=== PATIENT | female | born 2000 | race Caucasian/White ===

== ENCOUNTER → 2019-11-12 | Outpatient (CLI) | payer OTHER ==
[~2019-11-12] MED LIST: prenatal vit
[2019-11-12 18:21] LABS: BASO % 0.4 % (0.0-1.0); EOS # 0.1 10^3/uL (0.0-0.5); EOS % 1.4 % (0.0-3.0); HEMATOCRIT 42.8 % (36.0-47.0); HEMOGLOBIN 13.7 g/dl (12.0-15.5); LYMPH # 2.5 10^3/uL (1.5-5.0); MEAN CORPUSCULAR HEMOGLOBIN 28.6 pg (27.0-33.0); MEAN CORPUSCULAR VOLUME 89.4 fl (80.0-96.0); MONO # 0.5 10^3/uL (0.0-0.8); MONO % 5.3 % (0.0-5.0); NEUTROPHILS # 6.4 10^3/uL (1.5-8.5); NEUTROPHILS % 66.2 % (36.0-66.0); PLATELET COUNT, AUTOMATED 289 10^3/uL (150-450); RED BLOOD COUNT 4.79 10^6/uL (4.00-5.40); WHITE BLOOD COUNT 9.7 10^3/uL (4.0-10.0)
[2019-11-12 19:47] LABS: CHLAMYDIA DNA AMPLIFICATION NEGATIVE (NEGATIVE); GC DNA AMPLIFICATION NEGATIVE (NEGATIVE)
[2019-11-13 10:47] LABS: HEPATITIS C VIRUS ABY INDEX < 0.0 INDEX (<0.8); HIV 1&2 SCREEN CENTAUR NEGATIVE (NEGATIVE); RUBELLA IgG QUALITATIVE IMMUNE (IMMUNE)
== END ==
LOC: M PLALAB 14:41
PROVIDERS: ATTEND Advanced Practice Midwife
DX: Z34.01 Encounter for supervision of normal first pregnancy, first trimester (principal); Z36.89 Encounter for other specified antenatal screening

== ENCOUNTER 2019-11-17 12:00 | Emergency (ER) | payer OTHER ==
[~2019-11-17] VITALS: Ht 167.6 cm; Wt 89.4 kg
[2019-11-17] MEDS ORDERED: prenatal vit (12:07)
[2019-11-17 12:42] LABS: BASO # 0.1 10^3/uL (0.0-0.2); BASO % 0.5 % (0.0-1.0); EOS # 0.1 10^3/uL (0.0-0.5); EOS % 1.3 % (0.0-3.0); HEMATOCRIT 43.1 % (36.0-47.0); HEMOGLOBIN 14.3 g/dl (12.0-15.5); LYMPH # 2.3 10^3/uL (1.5-5.0); LYMPH % 22.2 % (24.0-44.0); MEAN CORPUSCULAR HEMOGLOBIN 29.2 pg (27.0-33.0); MEAN CORPUSCULAR HGB CONC 33.2 g/dl (32.0-36.5); MONO # 0.5 10^3/uL (0.0-0.8); MONO % 5.1 % (0.0-5.0); NEUTROPHILS # 7.4 10^3/uL (1.5-8.5); NEUTROPHILS % 70.4 % (36.0-66.0); PLATELET COUNT, AUTOMATED 279 10^3/uL (150-450); WHITE BLOOD COUNT 10.4 10^3/uL (4.0-10.0)
[2019-11-17 13:29] LABS: BLOOD UREA NITROGEN 7 MG/DL (7-18); CALCIUM LEVEL 9.8 MG/DL (8.5-10.1); CARBON DIOXIDE LEVEL 26 MEQ/L (21-32); CHLORIDE LEVEL 104 MEQ/L (98-107); CREATININE FOR GFR 0.54 MG/DL (0.55-1.30); GLUCOSE, FASTING 90 MG/DL (70-100); HCG, SERUM QUANTITATIVE 61372 MIU/ML; POTASSIUM SERUM 4.3 MEQ/L (3.5-5.1); SODIUM LEVEL 137 MEQ/L (136-145)
[2019-11-17] MEDS ORDERED: ONDANSETRON 4 MG ORAL DISINTEGRATING TAB (Q0162 PER 1MG) PO ONE (14:15)
[2019-11-17 15:35] VITALS: BP 139/83
--- NOTE | 2019-11-17 15:35 | REP ---
First trimester ultrasound for vaginal bleeding, emergency room request: The bladder is adequately distended. There is an intrauterine gestational sac with a pole. The heart rate is 182 beats per minute. The pole crown-rump length is a 16 mm. This corresponds to a gestational age of 8 weeks 0 days/BOWEN 06/28/2020. Gestational age by LMP is 9 weeks 6 days/BOWEN 06/21/2020. There is a small subchorionic hemorrhage measuring 1.5 x 0.9 x 1.9 cm. The maternal adnexa and cul-de-sac demonstrate a 3.0 cm right ovarian cyst, likely a corpus luteum. Electronically Signed by Chava Ortiz MD 11/17/2019 03:28 P
== END 2019-11-17 15:42 | disposition home or self-care (01) ==
LOC: M ED 12:00
DX: O20.8 Other hemorrhage in early pregnancy (principal); O23.41 Unspecified infection of urinary tract in pregnancy, first trimester; Z3A.09 9 weeks gestation of pregnancy; Z79.899 Other long term (current) drug therapy; Z88.0 Allergy status to penicillin
CPT/HCPCS: 76801; 80048; 81001; 84702; 85025; 86850; 86900; 86901; 87086; 99283; Q0162

== ENCOUNTER → 2019-11-24 | Outpatient (CLI) | payer OTHER | LOC: M PLALAB 14:13 | PROVIDERS: ATTEND Advanced Practice Midwife | DX: Z34.81 Encounter for supervision of other normal pregnancy, first trimester (principal); Z36.89 Encounter for other specified antenatal screening ==

== ENCOUNTER → 2019-12-03 | Outpatient (CLI) | payer OTHER | LOC: M PLALAB 14:38 | PROVIDERS: ATTEND Advanced Practice Midwife | DX: Z34.81 Encounter for supervision of other normal pregnancy, first trimester (principal); Z36.89 Encounter for other specified antenatal screening ==

== ENCOUNTER → 2019-12-10 | Outpatient (REF) | payer OTHER | LOC: M SMT 16:06 | PROVIDERS: ATTEND Advanced Practice Midwife | DX: Z33.1 Pregnant state, incidental (principal) ==

== ENCOUNTER → 2020-02-18 | Outpatient (REF) | payer OTHER | LOC: M PLALAB 10:43 | PROVIDERS: ATTEND Advanced Practice Midwife | DX: O28.5 Abnormal chromosomal and genetic finding on antenatal screening of mother (principal); Z3A.00 Weeks of gestation of pregnancy not specified; Z53.8 Procedure and treatment not carried out for other reasons ==

== ENCOUNTER → 2020-03-18 | Outpatient (REF) | payer OTHER ==
[2020-03-18 17:55] LABS: HEMATOCRIT 34.8 % (36.0-47.0); HEMOGLOBIN 11.3 g/dl (12.0-15.5); MEAN CORPUSCULAR HEMOGLOBIN 28.5 pg (27.0-33.0); MEAN CORPUSCULAR HGB CONC 32.5 g/dl (32.0-36.5); MEAN CORPUSCULAR VOLUME 87.7 fl (80.0-96.0); RED BLOOD COUNT 3.97 10^6/uL (4.00-5.40); WHITE BLOOD COUNT 11.4 10^3/uL (4.0-10.0)
[2020-03-18 17:56] LABS: PLATELET COUNT, AUTOMATED 258 10^3/uL (150-450)
== END ==
LOC: M PLALAB 14:38
PROVIDERS: ATTEND Advanced Practice Midwife
DX: O28.5 Abnormal chromosomal and genetic finding on antenatal screening of mother (principal)

== ENCOUNTER → 2020-05-24 | Outpatient (REF) | payer OTHER ==
[~2020-05-24] MED LIST changes: +DOCU100C16 PO
== END ==
LOC: M SFHCWAGY 16:10
PROVIDERS: ATTEND Specialist
DX: Z00.00 Encounter for general adult medical examination without abnormal findings (principal)

== ENCOUNTER → 2020-06-07 | Outpatient (REF) | payer OTHER ==
[2020-07-26 12:41] LABS: HEMATOCRIT 35.2 % (36.0-47.0); HEMOGLOBIN 10.9 g/dl (12.0-15.5); MEAN CORPUSCULAR HEMOGLOBIN 26.2 pg (27.0-33.0); MEAN CORPUSCULAR VOLUME 84.6 fl (80.0-96.0); PLATELET COUNT, AUTOMATED 300 10^3/uL (150-450); RED BLOOD COUNT 4.16 10^6/uL (4.00-5.40); WHITE BLOOD COUNT 10.2 10^3/uL (4.0-10.0)
[2020-08-03 12:32] LABS: ALT/SGPT 18 U/L (12-78); BILIRUBIN,TOTAL 0.3 MG/DL (0.2-1.0); CREATININE FOR GFR 0.44 MG/DL (0.55-1.30); LDH LACTATE DEHYDROGENASE 175 U/L (84-246); URIC ACID 2.9 MG/DL (2.6-6.0)
[2020-08-03 12:33] LABS: CREATININE,RANDOM URINE 67.3 MG/DL; TOTAL PROTEIN,RANDOM URINE 15.1 MG/DL (0.0-12.0)
== END ==
LOC: M SFHCWAGY 13:07
PROVIDERS: ATTEND Advanced Practice Midwife
DX: O13.9 Gestational [pregnancy-induced] hypertension without significant proteinuria, unspecified trimester (principal); Z3A.00 Weeks of gestation of pregnancy not specified
CPT/HCPCS: 36415; 82247; 82565; 82570; 83615; 84156; 84450; 84460; 84550; 85027; G0463

== ENCOUNTER 2020-06-09 22:58 | Inpatient (IN) | payer OTHER ==
[~2020-06-09] VITALS: Ht 167.6 cm; Wt 109.5 kg
[~2020-06-09 22:58] MED LIST changes: -DOCU100C16 PO
[2020-06-09 23:38] VITALS: BP 140/70
[2020-06-10] VITALS (14 sets, daily range): BP systolic 116–166; BP diastolic 62–102
[2020-06-10 00:25] LABS: HEMATOCRIT 32.2 % (36.0-47.0); HEMOGLOBIN 10.2 g/dl (12.0-15.5); MEAN CORPUSCULAR HEMOGLOBIN 25.6 pg (27.0-33.0); MEAN CORPUSCULAR HGB CONC 31.7 g/dl (32.0-36.5); MEAN CORPUSCULAR VOLUME 80.7 fl (80.0-96.0); PLATELET COUNT, AUTOMATED 303 10^3/uL (150-450); RED BLOOD COUNT 3.99 10^6/uL (4.00-5.40); WHITE BLOOD COUNT 10.1 10^3/uL (4.0-10.0)
[2020-06-10] MEDS ORDERED: LACTATED RINGER'S 1000 ML IV STA (00:53)
[2020-06-10] MEDS: miSOPROStol 50 MCG 1/2 TAB (S0191) PO SCH ×3 (01:09→12:06)
--- NOTE | 2020-06-10 01:14 | HPEPDOC ---
Obstetrical History & Physical General Date of Admission Jun 09, 2020 at 22:58 Primary Care Physician: HAIM FOUNTAIN CNM History of Present Illness Patient is a 19-year-old female who is a with an BOWEN of 9-8-20 based off of her first trimester ultrasound. She initiated care in her first trimester of . No records are available for review. Her has been complicated by GHTN and obesity. She also has had excessive weight gain of 60 lbs during her . She denies any preeclamptic symptoms. She denies any leaking of fluid, vaginal bleeding, or contractions. She reports active movement. Chief Complaint: Gestational Hypertension Information Provided By: Patient Age: 19 : 1 Term: 0 Pre-term: 0 Abortions: 0 Livin Care Care: Good Care Dating Final EDC: Jun 28, 2020 Final EDC by: 1st trimester (US) EGA at Admission: 37.2 Antepartum Course Height (inches): 66 Pre- weight (lbs.): 180 Admission Weight (lbs.): 240 Change in Weight (lbs.): 60 Past Medical History Past Obstetrical History : Past Obstetrical History: [employer] History: No pertinent history Past Medical History Medical History History of IMANITN as a child at the age of 9 was on lisinopril. Surgical History: Denies/None Family History Significant Family History: Diabetes, Hypertension, Other (Crohns) Social History Marital Status: Family situation: Spouse/partner home Psychosocial History: No pertinent psych hx * Smoker: non-smoker Alcohol: Denies Drugs: denies Abuse Violence Screening Have you been hit/kicked/slapp: No Have you been sexually assault: No Allergies Coded Allergies: Penicillins (Verified Allergy, Severe, throat closes, 11/17/19) Medications No Active Prescriptions or Reported Meds Physical Examination Physical Examination GENERAL: Alert and oriented times three. BREAST: . ABDOMEN: Gravid and non-tender to touch. FETUS: Is vertex (VTX) by sterile vaginal examination (SVE), fetus is vertex (VTX) by Declan. HEART RATE: Regular rate and rhythm. LUNGS: Clear to auscultation (CTA). EXTREMITIES: Generalized edema. No clonus. Deep tendon reflexes (DTRs) + 2. Vital Signs/I&O Vital Signs Date Time Temp Pulse Resp B/P (MAP) Pulse Ox O2 Delivery O2 Flow Rate FiO2 06/09/20 23:38 98.0 96 17 140/70 (93) Laboratory Data 24H LABS Laboratory Tests 2 06/09/20 23:23: Serology Scanned Report Hepatitis B Testing 06/09/20 23:55: Nucleated Red Blood Cells % (auto) 0.0 CBC/BMP Laboratory Tests 06/09/20 23:55 Urine Culture: No Growth Pertinent Laboratoy Data Blood Type: A+ RBC Antibody Screen: Negative HIV: Negative Hepatitis B: Negative Hepatitis C: Negative Rapid Plasma Reagin: Nonreactive Rubella: Immune Chlamydia/Gonorrhea: Negative Group B Streptococcus: Positive Glucose Tolerance Test: 96 Vaginal Examination Dilation: 1cm Effacement: other (75%) Station: -2 Cervical Consistency: Soft Cervical Position: Anterior Presentation: Cephalic presentation Position: Vertex (occiput) Assessment Heart Rate (FHR): 135 Variability: Moderate Accelerations: Positive Decelerations: None Tocometer Contractions: Yes Frequency: irregular Multi-drug resistant Organism: No history of MDRO Assessment/Plan Assessment IUP at 37.2 weeks gestation GBS positive Category I FHR tracing GHTN Plan Admit to Labor and delivery. Plan of care collaborated with Dr. Valentine. Counseled on induction of labor. Reviewed process of induction including use of Cytotec, bowen bulb and IV Pitocin. \ Cytotec ordered and to be started. Diet: regular until IV Pitocin is started then clear liquid diet. Group B Streptococcus (GBS) positive. GBS prophylaxis antibiotics to be started per order when labor starts. Labs and intravenous (IV) per unit protocol. Anesthesia consult per patient's request. Lactated Ringers (LR): Bolus 500 mL prior to epidural, then at 125 mL/hr. Anticipate cervical ripening. C-S as appropriate. HAIM FOUNTAIN CNM Jun 10, 2020 01:14
[2020-06-10 02:35] LABS: ALT/SGPT 18 U/L (12-78); CREATININE FOR GFR 0.59 MG/DL (0.55-1.30); LDH LACTATE DEHYDROGENASE 188 U/L (84-246); URIC ACID 2.7 MG/DL (2.6-6.0)
[2020-06-10 07:40] LABS: BILIRUBIN,TOTAL < 0.1 MG/DL (0.2-1.0)
[2020-06-10] MEDS ORDERED: * PENDING VANCOMYCIN ENTRY XX SCH (09:00)
--- NOTE | 2020-06-10 09:03 | IPNPDOC ---
Text Note Date of Service The patient was seen on 06/10/20. NOTE Progress Has eaten and showered. Reports UC irregular but stronger, approximately Q 10 minutes. FH 145, moderate variability SVE 1-2/80/-2, moderate texture. Continue misoprostol at this time. VS,Fishbone, I+O VS, Fishbone, I+O Laboratory Tests 06/09/20 23:55 Vital Signs Date Time Temp Pulse Resp B/P (MAP) Pulse Ox O2 Delivery O2 Flow Rate FiO2 06/10/20 05:03 81 16 116/64 (81) 06/10/20 04:02 98.2 Malena Tyson CNM Jun 10, 2020 09:03
--- NOTE | 2020-06-10 20:31 | IPNPDOC ---
Text Note Date of Service The patient was seen on 06/10/20. NOTE Progress Has received misoprostol x 3. Irregular UC FH 135, Cat I SVE 2+/80/-2 Cooks catheter placed, inflated with NS 60cc/40cc Will start pitocin. Pt plans epidural VS,Fishbone, I+O VS, Fishbone, I+O Laboratory Tests 06/09/20 23:55 Vital Signs Date Time Temp Pulse Resp B/P (MAP) Pulse Ox O2 Delivery O2 Flow Rate FiO2 06/10/20 13:02 74 130/62 (84) 06/10/20 09:02 20 06/10/20 07:50 96.7 Malena Tyson CNM Jun 10, 2020 20:30
[2020-06-10] MEDS ORDERED: OXYTOCIN 30 UNITS IN 0.9% NaCl 500ML IV BAG (J2590) As Ordered ONE (20:38)
[2020-06-10] MEDS ORDERED: OXYTOCIN DRIP 30 UNITS in IV 1 EA IV SCH (20:45)
[2020-06-10] MEDS: VANCOMYCIN HCL 1,000 MG, VIAL MATE ADAPTER 1 EACH in D5W 250 ML IV SCH (21:07)
[2020-06-10] MEDS: LR 1,000 ML IV SCH (21:07)
[2020-06-10] MEDS ORDERED: BUTORPHANOL 2 MG/ML INJ (J0595) IV ONE (21:45)
[2020-06-10] MEDS ORDERED: PROMETHAZINE INJ 25 MG/ML VIAL (J2550) IV ONE (21:45)
[2020-06-11] VITALS (19 sets, daily range): BP systolic 115–147; BP diastolic 57–108
--- NOTE | 2020-06-11 02:47 | IPNPDOC ---
Text Note Date of Service The patient was seen on 06/11/20. NOTE Progress Vaginal bulb deflated. Uterine bulb in vagina, removed intact SVE 5/80/-1, moderate bloody show Pitocin at 4mu UC 2-5 minutes x 45-60 seconds FH 145, Cat I Continue IOL. Planning epidural VS,Fishbone, I+O VS, Fishbone, I+O Vital Signs Date Time Temp Pulse Resp B/P (MAP) Pulse Ox O2 Delivery O2 Flow Rate FiO2 06/10/20 22:47 18 06/10/20 13:02 74 130/62 (84) 06/10/20 07:50 96.7 Malena Tyson CNM Jun 11, 2020 02:47
[2020-06-11] MEDS ORDERED: FENTANYL 2MCG/ML ROPIVACAINE 0.2% IN 0.9% NACL 100ML IVBAG As Ordered ONE (04:03)
[2020-06-11] MEDS ORDERED: diphenhydrAMINE 50MG/ML VIAL (J1200) IV PRN (04:50)
[2020-06-11] MEDS ORDERED: FENTANYL/ROPIVACAINE/NACL BAG 100 ML EPIDURAL SCH (04:50)
[2020-06-11] MEDS ORDERED: LACTATED RINGER'S 1000 ML IV PRN (04:50)
[2020-06-11] MEDS ORDERED: NALOXONE INJ 0.4MG/1ML VIAL (J2310 PER 1MG) IV PRN (04:50)
[2020-06-11] MEDS ORDERED: REFRIGERATOR IV KEYS XX PRN (04:50)
[2020-06-11] MEDS ORDERED: ePHEDrine SULFATE 25 MG/5 ML(5MG/ML) SYRINGE IV PRN (04:50)
[2020-06-11] MEDS ORDERED: EPIDURAL/PCA KEYS XX PRN (04:50)
[2020-06-11] MEDS ORDERED: ONDANSETRON 4MG/2ML VIAL IV PRN (04:50)
[2020-06-11] MEDS ORDERED: EPIDURAL COMMENT XX SCH (04:50)
[2020-06-11] MEDS ORDERED: ONDANSETRON 4MG/2ML VIAL As Ordered ONE (05:43)
[2020-06-11] MEDS: LR 1,000 ML IV SCH (08:51)
[2020-06-11] MEDS: VANCOMYCIN HCL 1,000 MG, VIAL MATE ADAPTER 1 EACH in D5W 250 ML IV SCH (08:51)
--- NOTE | 2020-06-11 11:36 | DNPDOC ---
[facility] Delivery Note Delivery Note DATE OF DELIVERY: 06/11/2020 TIME OF : 1045 GENDER: Male. APGARS:, 9 and 9. WEIGHT:, 3240 grams or 7 pounds 2 ounces. LACERATIONS: None ANESTHESIA: Epidural. ESTIMATED BLOOD LOSS: 300ml COUNTS: 5 laparotomy sponges accounted for prior to after delivery. DELIVERY NOTE: 06/11/2020, had a spontaneous vaginal delivery of viable male , Apgars 9 and 9, and weight was 3240 g or 7 lbs. 2 oz. Head was delivered occiput anterior (OA) , followed by delivery of the shoulders and corpus. was handed to mom with a good cry. Cord was clamped times two and was cut by the father of baby under my direction. Placenta was then drained and delivered grossly intact. A premixed bag of 500 mL of normal saline with 30 units of Pitocin was then bolused along with uterine massage until the uterus w as firm. On inspection, cervix, vagina, perineum was grossly intact and hemostatic. Mom and baby in recovery on stable condition. The couples decided to remain in son VINOD Potter MD. Jun 11, 2020 11:36
[2020-06-11] MEDS ORDERED: METHYLERGONOVINE MALEATE 0.2 MG TAB PO PRN (11:45)
[2020-06-11] MEDS ORDERED: ACETAMINOPHEN TAB 650MG DOSE (2X325MG) PO PRN (11:45)
[2020-06-11] MEDS ORDERED: DIBUCAINE 1% OINTMENT 30GM TOP PRN (11:45)
[2020-06-11] MEDS ORDERED: RHOGAM 300 MCG (1500 IU) INJ (J2790) IM SCH (11:45)
[2020-06-11] MEDS ORDERED: ANUSOL HC CREAM 30GM TOP PRN (11:45)
[2020-06-11] MEDS ORDERED: MOM 30ML SUSPENSION UDC PO PRN (11:45)
[2020-06-11] MEDS ORDERED: MEASLES,MUMPS,RUBELLA VACCINE INJ (MMR-II) (90707) SC SCH (11:45)
[2020-06-11] MEDS ORDERED: ACETAMINOPHEN 500 MG TAB PO PRN (11:45)
[2020-06-11] MEDS ORDERED: OXYTOCIN DRIP 30 UNITS in IV 1 EA IV SCH (11:45)
[2020-06-11] MEDS ORDERED: IBUPROFEN 600MG TAB PO PRN (11:45)
[2020-06-11] MEDS ORDERED: DOCUSATE SODIUM 100 MG CAP PO PRN (11:45)
[2020-06-11] MEDS: IBUPROFEN 800 MG TAB PO PRN (17:27)
[2020-06-12] MEDS: IBUPROFEN 800 MG TAB PO PRN ×2 (02:16→17:45)
[2020-06-12 06:00] VITALS: BP 128/70
[2020-06-12] MEDS: PRENATAL VITAMINS CHEWABLE TABLET PO SCH (07:56)
--- NOTE | 2020-06-12 11:03 | IPNPDOC ---
Progress Note Date of Service: Jun 12, 2020 Day#: 1 Progress Note SUBJECT: Doing well without complaints. Ambulating, voiding and pain is well-c ontrolled. Reports minimal lochia. OBJECTIVE: VITAL SIGNS: Within normal limits, afebrile. Alert and oriented times three. Abdomen: Fundus firm at U-2. Soft, NTTP. Ext: neg calf tenderness. ASSESSMENT: day #1 status post normal spontaneous vaginal delivery. Recovering in stable condition. PLAN: 1. Continue routine care 2. Discharge plans for tomorrow VS, I&O, 24H, Fishbone Vital Signs/I&O Vital Signs Date Time Temp Pulse Resp B/P (MAP) Pulse Ox O2 Delivery O2 Flow Rate FiO2 06/12/20 06:00 96.7 80 18 128/70 (89) I&O- Last 24 Hours up to 6 AM 06/12/20 05:59 Intake Total 1385 ml Output Total 600 ml Balance 785 ml VINOD CHENG MD. Jun 12, 2020 11:03
[2020-06-12 17:42] VITALS: BP 136/66
[2020-06-13 06:09] VITALS: BP 139/77
[2020-06-13] MEDS ORDERED: DOCU100C16 PO (07:55)
[2020-06-13] MEDS: PRENATAL VITAMINS CHEWABLE TABLET PO SCH (08:38)
[2020-06-13] MEDS: IBUPROFEN 800 MG TAB PO PRN (08:38)
== END 2020-06-13 09:58 | disposition home or self-care (01) | DRG 807 ==
LOC: M LDI 22:58 → M OBS 06-11 13:34
PROVIDERS: ADMIT Advanced Practice Midwife; ATTEND Obstetrics & Gynecology
PROC: 3E0P7GC Introduction of Other Therapeutic Substance into Female Reproductive, Via Natural or Artificial Opening (ICD-10-PCS; 2020-06-09)
PROC: 10E0XZZ Delivery of Products of Conception, External Approach (ICD-10-PCS; principal; 2020-06-11)
DX: O13.4 Gestational [pregnancy-induced] hypertension without significant proteinuria, complicating childbirth (principal); Z37.0 Single live birth; O99.214 Obesity complicating childbirth; E66.9 Obesity, unspecified; O99.824 Streptococcus B carrier state complicating childbirth; Z3A.37 37 weeks gestation of pregnancy

== ENCOUNTER → 2021-02-07 | Outpatient (REF) | payer OTHER ==
[~2021-02-07] MED LIST changes: +DOCU100C16 PO
[2021-02-07 18:13] LABS: HEMATOCRIT 41.7 % (36.0-47.0); HEMOGLOBIN 13.4 g/dl (12.0-15.5); MEAN CORPUSCULAR HEMOGLOBIN 26.7 pg (27.0-33.0); MEAN CORPUSCULAR HGB CONC 32.1 g/dl (32.0-36.5); MEAN CORPUSCULAR VOLUME 83.2 fl (80.0-96.0); PLATELET COUNT, AUTOMATED 300 10^3/uL (150-450); RED BLOOD COUNT 5.01 10^6/uL (4.00-5.40); WHITE BLOOD COUNT 10.3 10^3/uL (4.0-10.0)
[2021-02-07 19:57] LABS: HEPATITIS C VIRUS ABY INDEX < 0.0 INDEX (<0.8)
[2021-02-10 09:07] LABS: HIV 1&2 SCREEN CENTAUR NEGATIVE (NEGATIVE)
== END ==
LOC: M PLALAB 14:57
PROVIDERS: ATTEND Specialist
DX: Z34.81 Encounter for supervision of other normal pregnancy, first trimester (principal)

== ENCOUNTER → 2021-03-08 | Outpatient (REF) | payer OTHER | LOC: M SMT 16:38 | PROVIDERS: ATTEND Specialist | DX: Z34.81 Encounter for supervision of other normal pregnancy, first trimester (principal); Z36.89 Encounter for other specified antenatal screening | CPT/HCPCS: 87086; G0463 ==

== ENCOUNTER → 2021-03-30 | Outpatient (CLI) | payer OTHER ==
--- NOTE | 2021-03-31 04:34 | REP ---
INDICATION: ANATOMY COMPARISON: None. TECHNIQUE: Transabdominal obstetrical ultrasound with color Doppler evaluation. FINDINGS: Examination demonstrates a single live intrauterine in cephalic presentation. motion is identified by technologist. Placenta is noted anterior and grade 0 without evidence for placenta previa or abruption. Amniotic fluid volume is normal. Cervix measures 3.3 cm in length and appears closed.. Selected gestational age: 19 weeks 4 days with BOWEN 08/20/2021. Gestational age by current measurements 19 weeks 1 day with BOWEN 08/23/2021. FHR equals 138 beats per minute. Estimated weight 269 grams (19thpercentile). Anatomical assessment demonstrates normal structures including cranium, choroid plexus, cavum, cerebellum/posterior fossa, facial features, lungs,diaphragm, stomach, cord insertion/three-vessel cord, kidneys/bladder, spine, and extremities. IMPRESSION: Single live intrauterine in breech presentation. Appropriate estimated weight. Limited evaluation of the heart/ventricular outflow tracts. Remainder of the anatomical assessment is complete and normal. <Electronically signed by Ken Case > 03/31/21 2002
== END ==
LOC: M WHC 12:58
PROVIDERS: ATTEND Advanced Practice Midwife
DX: Z36.89 Encounter for other specified antenatal screening (principal); Z3A.19 19 weeks gestation of pregnancy; O32.1XX0 Maternal care for breech presentation, not applicable or unspecified

== ENCOUNTER → 2021-05-01 | Outpatient (CLI) | payer OTHER ==
--- NOTE | 2021-05-01 10:35 | REP ---
INDICATION: F/U ANATOMY COMPARISON: 03/30/2021 TECHNIQUE: Transabdominal obstetrical ultrasound with color Doppler evaluation. FINDINGS: Examination demonstrates a single live intrauterine in breech presentation. motion is identified by technologist. Placenta is noted anterior and grade 1 without evidence for placenta previa or abruption. Amniotic fluid volume is normal. Cervix measures 4.0 cm in length and appears closed.. Selected gestational age: 24 weeks 1 day with BOWEN 08/20/2021. Gestational age by current measurements 23 weeks 6 days with BOWEN 08/22/2021. FHR equals 133 beats per minute. Estimated weight 642 grams (31stpercentile). Anatomical assessment demonstrates normal structures including cranium, choroid plexus, cavum, cerebellum/posterior fossa, facial features, lungs, four-chamber heart/ventricular outflow tracts, diaphragm, stomach, cord insertion/three-vessel cord, kidneys/bladder, and extremities. IMPRESSION: Single live intrauterine in breech presentation demonstrating appropriate estimated weight. In conjunction with prior examination anatomical assessment is complete and normal. <Electronically signed by Ken Case > 05/01/21 [id number]
== END ==
LOC: M WHC 09:24
PROVIDERS: ATTEND Advanced Practice Midwife
DX: Z36.89 Encounter for other specified antenatal screening (principal); Z3A.23 23 weeks gestation of pregnancy

== ENCOUNTER → 2021-05-01 | Outpatient (CLI) | payer OTHER ==
[2021-05-01 13:29] LABS: HEMATOCRIT 35.2 % (36.0-47.0); HEMOGLOBIN 11.2 g/dl (12.0-15.5); MEAN CORPUSCULAR HEMOGLOBIN 27.3 pg (27.0-33.0); MEAN CORPUSCULAR HGB CONC 31.8 g/dl (32.0-36.5); MEAN CORPUSCULAR VOLUME 85.9 fl (80.0-96.0); PLATELET COUNT, AUTOMATED 249 10^3/uL (150-450); WHITE BLOOD COUNT 9.4 10^3/uL (4.0-10.0)
== END ==
LOC: M PLALAB 09:19
PROVIDERS: ATTEND Obstetrics & Gynecology
DX: Z34.82 Encounter for supervision of other normal pregnancy, second trimester (principal)

== ENCOUNTER → 2021-07-27 | Outpatient (REF) | payer OTHER | LOC: M SFHCWAGY 16:48 | PROVIDERS: ATTEND Advanced Practice Midwife | DX: Z36.89 Encounter for other specified antenatal screening (principal); Z3A.36 36 weeks gestation of pregnancy | CPT/HCPCS: 87081; 87186; G0463 ==

== ENCOUNTER 2021-08-11 15:49 | Outpatient (CLI) | payer OTHER ==
[~2021-08-11] VITALS: Ht 167.6 cm; Wt 105.7 kg
[2021-08-11 16:10] VITALS: BP 134/77
--- NOTE | 2021-08-11 16:55 | IPNPDOC ---
Text Note Date of Service The patient was seen on 08/11/21. NOTE Outpatient 20yo BOWEN 08/20/2021. Presents @ 38w5d with complaints of left sided groin pain that comes and goes.Denies rhythmic contractions, timing ranges from 5-10 minutes apart. Denies LOF, bleeding. Fetus is very active. Reports shopping yesterday and climbing stairs through the day No distress, smiling in bed with partner at bedside VSS Abdomen is soft, gravid, longitudinal, nontender except along left groin with deep palpation. Cat I tracing, no UC on monitor SVE /-3, no show on glove Discharged home. Routine precautions. Enc pt to make appt for next week if her scheduled IOL is bumped. Malena Tyson CNM Aug 11, 2021 16:55
== END 2021-08-11 17:12 | disposition home or self-care (01) ==
LOC: M LDO 15:49
PROVIDERS: ATTEND Advanced Practice Midwife
DX: O26.893 Other specified pregnancy related conditions, third trimester (principal); Z3A.38 38 weeks gestation of pregnancy; R10.32 Left lower quadrant pain
CPT/HCPCS: 59025; G0378; G0463

== ENCOUNTER → 2023-03-01 | Outpatient (REF) | payer OTHER ==
[~2023-03-01] MED LIST changes: +FAMO10TA50 PO; +MULTTAB20 PO
== END ==
LOC: M SFHCWAGY 17:37
PROVIDERS: ATTEND Obstetrics & Gynecology
DX: Z12.4 Encounter for screening for malignant neoplasm of cervix (principal); R87.618 Other abnormal cytological findings on specimens from cervix uteri
CPT/HCPCS: 87624; G0123; G0463

== ENCOUNTER → 2023-06-12 | Outpatient (CLI) | payer OTHER, SELFPAY ==
[2023-06-12 14:19] LABS: LDH LACTATE DEHYDROGENASE 132 U/L (120-246); URIC ACID 3.7 MG/DL (3.1-7.8)
[2023-06-12 14:20] LABS: ALT/SGPT 11 U/L (7.0-40); AST/SGOT < 8 U/L (<34); BILIRUBIN,TOTAL 0.3 MG/DL (0.3-1.2); CREATININE FOR GFR 0.47 MG/DL (0.55-1.30); CREATININE,RANDOM URINE 67.4 MG/DL; GLOMERULAR FILTRATION RATE > 60.0 (>60)
[2023-06-12 14:21] LABS: TOTAL PROTEIN,RANDOM URINE < 6.0 MG/DL (0.0-14.0)
== END ==
LOC: M PLALAB 09:59
PROVIDERS: ATTEND Advanced Practice Midwife
DX: O16.2 Unspecified maternal hypertension, second trimester (principal); Z3A.00 Weeks of gestation of pregnancy not specified
CPT/HCPCS: 36415; 82247; 82565; 82570; 83615; 84156; 84450; 84460; 84550; G0463

== ENCOUNTER → 2023-08-16 | Outpatient (CLI) | payer OTHER, SELFPAY | LOC: M WHC 11:08 | PROVIDERS: ATTEND Specialist | DX: Z34.82 Encounter for supervision of other normal pregnancy, second trimester (principal); Z3A.23 23 weeks gestation of pregnancy ==

== ENCOUNTER → 2023-09-06 | Outpatient (CLI) | payer OTHER ==
[2023-09-06 17:27] LABS: HEMATOCRIT 35.5 % (36.0-47.0); HEMOGLOBIN 11.7 g/dl (12.0-15.5); MEAN CORPUSCULAR HEMOGLOBIN 28.4 pg (27.0-33.0); MEAN CORPUSCULAR VOLUME 86.2 fl (80.0-96.0); PLATELET COUNT, AUTOMATED 265 10^3/uL (150-450); RED BLOOD COUNT 4.12 10^6/uL (4.00-5.40); WHITE BLOOD COUNT 11.3 10^3/uL (4.0-10.0)
[2023-09-06 18:45] LABS: CHLAMYDIA DNA AMPLIFICATION NEGATIVE (NEGATIVE); GC DNA AMPLIFICATION NEGATIVE (NEGATIVE)
== END ==
LOC: M PLALAB 13:42
PROVIDERS: ATTEND Specialist
DX: Z34.82 Encounter for supervision of other normal pregnancy, second trimester (principal)
CPT/HCPCS: 36415; 82950; 85027; 86850; 86900; 86901; 87810; 87850; G0463

== ENCOUNTER → 2023-11-08 | Outpatient (REF) | payer OTHER | LOC: M PLALAB 14:09 | PROVIDERS: ATTEND Obstetrics & Gynecology | DX: O26.893 Other specified pregnancy related conditions, third trimester (principal); Z36.89 Encounter for other specified antenatal screening; Z3A.36 36 weeks gestation of pregnancy ==

== ENCOUNTER 2023-11-23 15:40 | Inpatient (IN) | payer OTHER ==
[2023-11-23] VITALS (9 sets, daily range): BP systolic 107–142; BP diastolic 52–86
[~2023-11-23] VITALS: Ht 167.6 cm; Wt 113.4 kg
[2023-11-23] MEDS ORDERED: TUMS750C22 PO (16:04)
[2023-11-23] MEDS ORDERED: LABE100T71 PO (16:04)
[2023-11-23] MEDS ORDERED: HOME MED LIST COMPLETE! XX SCH (16:05)
[2023-11-23] MEDS ORDERED: CARBOPROST TROMETHAMINE 250 MCG/ML AMP IM PRN (16:15)
[2023-11-23] MEDS ORDERED: OXYTOCIN DRIP 30 UNITS in IV 1 EA IV PRN (16:15)
[2023-11-23] MEDS ORDERED: TRANEXAMIC ACID INJection 1,000 MG in NS 100 ML IV PRN (16:15)
[2023-11-23] MEDS ORDERED: LIDOCAINE 1% MDV 20ML VIAL INFIL PRN (16:15)
[2023-11-23 16:51] LABS: HEMOGLOBIN 11.6 g/dl (12.0-15.5); MEAN CORPUSCULAR HEMOGLOBIN 26.7 pg (27.0-33.0); MEAN CORPUSCULAR HGB CONC 33.1 g/dl (32.0-36.5); MEAN CORPUSCULAR VOLUME 80.5 fl (80.0-96.0); PLATELET COUNT, AUTOMATED 303 10^3/uL (150-450); RED BLOOD COUNT 4.35 10^6/uL (4.00-5.40); WHITE BLOOD COUNT 9.6 10^3/uL (4.0-10.0)
[2023-11-23] MEDS: miSOPROStol 50MCG 1/2 TABLET PO SCH (18:11)
[2023-11-23] MEDS ORDERED: CALCIUM CARBONATE 500 MG CHEW U/D PO PRN (18:25)
[2023-11-23] MEDS: LABETALOL 100MG TAB PO SCH (22:05)
[2023-11-23] MEDS: OXYTOCIN DRIP 30 UNITS in IV 1 EA IV SCH (23:15)
[2023-11-23] MEDS: LR 1,000 ML IV SCH (23:15)
[2023-11-24] VITALS (46 sets, daily range): BP systolic 113–160; BP diastolic 56–89; O2SAT 98–100
[2023-11-24] MEDS ORDERED: ePHEDrine SULFATE 25 MG/5 ML(5MG/ML) SYRINGE IVP PRN (07:55)
[2023-11-24] MEDS ORDERED: ONDANSETRON 4MG 2ML VIAL IV PRN (07:55)
[2023-11-24] MEDS ORDERED: NALOXONE INJ 0.4MG/1ML VIAL IV PRN (07:55)
[2023-11-24] MEDS ORDERED: diphenhydrAMINE 50MG/ML VIAL IV PRN (07:55)
[2023-11-24] MEDS ORDERED: LR 500 ML IV PRN (07:55)
[2023-11-24] MEDS ORDERED: EPIDURAL/PCA KEYS XX PRN (07:55)
[2023-11-24] MEDS: FENTANYL/ROPIVACAINE/NACL BAG 100 ML EPIDURAL SCH (09:17)
[2023-11-24] MEDS ORDERED: ACETAMINOPHEN TAB 650MG DOSE (2X325MG) PO PRN (12:50)
[2023-11-24] MEDS ORDERED: DOCUSATE SODIUM 100MG CAPSULE PO PRN (12:50)
[2023-11-24] MEDS ORDERED: MOM 30ML SUSPENSION UDC PO PRN (12:50)
[2023-11-24] MEDS ORDERED: RHOGAM 300MCG (1500IU) INJ IM SCH (12:50)
[2023-11-24] MEDS ORDERED: IBUPROFEN 600MG TAB PO PRN (12:50)
[2023-11-24] MEDS: OXYTOCIN DRIP 30 UNITS in IV 1 EA IV SCH (13:00)
[2023-11-24] MEDS: IBUPROFEN 800 MG TAB PO PRN (16:10)
[2023-11-24] MEDS: DIBUCAINE 1% OINTMENT 30GM TOP PRN (16:10)
[2023-11-24] MEDS: ACETAMINOPHEN 500 MG TAB PO PRN (18:50)
[2023-11-25] VITALS (10 sets, daily range): BP systolic 61–182; BP diastolic 61–98; O2SAT 97–100
[2023-11-25] MEDS: LABETALOL 100MG TAB PO ONE (03:15)
[2023-11-25] MEDS: PRENATAL VITAMINS CHEWABLE TABLET PO SCH (09:10)
[2023-11-25] MEDS: LABETALOL 100MG TAB PO SCH (09:11)
[2023-11-25] MEDS: LABETALOL 200 MG TAB PO SCH (21:03)
[2023-11-26 02:00] VITALS: BP 130/66; O2SAT 99
[2023-11-26 06:00] VITALS: BP 143/75; O2SAT 98
[2023-11-26] MEDS: MEASLES,MUMPS,RUBELLA VACCINE INJ (MMR-II) SC.IMMUN ONE (06:51)
[2023-11-26] MEDS: ANUSOL HC CREAM 30GM TOP PRN (07:15)
[2023-11-26 08:42] LABS: HEMATOCRIT 35.1 % (36.0-47.0); HEMOGLOBIN 11.2 g/dl (12.0-15.5); MEAN CORPUSCULAR HEMOGLOBIN 26.7 pg (27.0-33.0); MEAN CORPUSCULAR HGB CONC 31.9 g/dl (32.0-36.5); MEAN CORPUSCULAR VOLUME 83.6 fl (80.0-96.0); PLATELET COUNT, AUTOMATED 274 10^3/uL (150-450); WHITE BLOOD COUNT 9.4 10^3/uL (4.0-10.0)
[2023-11-26 09:11] LABS: ALBUMIN 2.5 G/DL (3.2-5.2); ALKALINE PHOSPHATASE 93 U/L (46-116); ALT/SGPT 11 U/L (7.0-40); AST/SGOT 12 U/L (<34); BILIRUBIN,TOTAL 0.2 MG/DL (0.3-1.2); BLOOD UREA NITROGEN 6 MG/DL (9-23); CARBON DIOXIDE LEVEL 22 MMOL/L (20-31); CHLORIDE LEVEL 108 MMOL/L (98-107); GLOMERULAR FILTRATION RATE > 60.0 (>60); GLUCOSE, FASTING 103 MG/DL (60-100); SODIUM LEVEL 138 MMOL/L (136-145)
[2023-11-26] MEDS ORDERED: IBUP-1022 PO (09:31)
[2023-11-26] MEDS ORDERED: COLA100C5 PO (09:31)
[2023-11-26] MEDS ORDERED: NORE0.353 PO (09:31)
[2023-11-26] MEDS ORDERED: ACET-683 PO (09:31)
[2023-11-26] MEDS ORDERED: LABE20TAB PO (09:31)
[2023-11-26 14:00] VITALS: BP 159/81; O2SAT 99
[2023-11-26 18:00] VITALS: BP 158/79; O2SAT 99
[2023-11-26 19:55] VITALS: BP 147/88; O2SAT 100
[2023-11-26 20:30] VITALS: BP 137/83; O2SAT 99
== END 2023-11-26 20:38 | disposition home or self-care (01) | DRG 807 ==
LOC: M LDI 15:40 → M OBS 11-24 15:15
PROVIDERS: ADMIT Obstetrics & Gynecology; ATTEND Obstetrics & Gynecology
PROC: 3E0234Z Introduction of Serum, Toxoid and Vaccine into Muscle, Percutaneous Approach (ICD-10-PCS; 2023-11-23)
PROC: 3E0P7VZ Introduction of Hormone into Female Reproductive, Via Natural or Artificial Opening (ICD-10-PCS; 2023-11-23)
PROC: 10E0XZZ Delivery of Products of Conception, External Approach (ICD-10-PCS; principal; 2023-11-24)
DX: O10.92 Unspecified pre-existing hypertension complicating childbirth (principal); Z37.0 Single live birth; O69.82X0 Labor and delivery complicated by other cord entanglement, without compression, not applicable or unspecified; Z3A.38 38 weeks gestation of pregnancy